=== PATIENT | female | born 2005 | race American Indian/Alaskan Native ===

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

== ENCOUNTER 2023-05-30 08:32 | Inpatient (IN) | payer MEDICAID ==
[2023-05-30] MEDS ORDERED: Methylergonovine 0.2 MG/1 ML Amp IM PRN (09:08)
[2023-05-30] MEDS ORDERED: Sodium Chloride 0.9% 10 ML Syringe FLUSH PRN (09:08)
[2023-05-30] MEDS ORDERED: Carboprost Tromethamine 250 MCG/1 ML Amp IM PRN (09:08)
[2023-05-30] MEDS ORDERED: Lactated Ringers 1,000 ML IV ONE (09:08)
[2023-05-30] MEDS ORDERED: Ondansetron 4 MG/2 ML SDV IVPUSH PRN (09:08)
[2023-05-30] MEDS ORDERED: Misoprostol 400 MCG (4 X 100 MCG TAB) RECTAL PRN (09:08)
[2023-05-30] MEDS ORDERED: Lidocaine 1% 30 ML SDV INJECT ONE (09:08)
[2023-05-30] MEDS ORDERED: Tranexamic Acid 1,000 MG in Sodium Chloride 0.9% 100 ML IV PRN (09:08)
[2023-05-30] MEDS: Lactated Ringers 1,000 ML IV SCH ×2 (09:13→18:55)
[2023-05-30] MEDS ORDERED: Oxytocin/Normal Saline 30 UNIT/500 ML BAG IV SCH ×2 (09:15)
[2023-05-30 09:18] LABS: HEMATOCRIT 42.5 % (37.0-47.0); HEMOGLOBIN 14.4 g/dL (12.0-16.0); MEAN CORPUSCULAR HEMOGLOBIN 31.2 pg (27.0-34.0); MEAN CORPUSCULAR HGB CONC 33.9 g/dL (33.0-35.0); RED BLOOD CELL COUNT 4.62 10^6/uL (4.2-5.4); WHITE BLOOD CELL COUNT,WBC 9.9 10^3/uL (5.0-10.0)
[2023-05-30] MEDS ORDERED: fentaNYL 100 MCG/2 ML SDV IVPUSH PRN (17:16)
[2023-05-30] MEDS ORDERED: fentaNYL 100 MCG/2 ML SDV ONE ×2 (17:17→18:30)
[2023-05-30] MEDS ORDERED: Ropivacaine 200 MG in Premix Bag 1 BAG EPIDUR SCH (18:00)
[2023-05-30] MEDS ORDERED: Bupivacaine 0.25% 10 ML SDV ONE (18:30)
[2023-05-30] MEDS: Sodium Chloride 0.9% 10 ML Syringe FLUSH SCH (20:56)
[2023-05-30] MEDS ORDERED: Ketorolac 30 MG/ML SDV IVPUSH SCH (23:45)
[2023-05-30] MEDS ORDERED: ceFAZolin 2 GM Vial IVPUSH ONE (23:50)
[2023-05-30] MEDS ORDERED: diphenhydrAMINE 50 MG/ML SDV IVPUSH PRN (23:51)
[2023-05-30] MEDS ORDERED: ePHEDrine 50 MG/ML SDV IVPUSH PRN (23:51)
[2023-05-30] MEDS ORDERED: Naloxone 2 MG/2 ML Syringe IVPUSH PRN (23:51)
[2023-05-30] MEDS ORDERED: Acetaminophen 325 MG Tab PO PRN (23:51)
[2023-05-30] MEDS ORDERED: Ondansetron 4 MG/2 ML SDV ONE (23:57)
[2023-05-30] MEDS ORDERED: Lidocaine 2% with EPINEPHrine 1:200,000 20 ML SDV ONE (23:57)
[2023-05-30] MEDS ORDERED: ceFAZolin 2 GM Vial ONE (23:58)
[2023-05-30] MEDS ORDERED: Oxytocin 10 Units/1 ML SDV ONE (23:58)
[2023-05-30] MEDS ORDERED: Ketorolac 30 MG/ML SDV ONE (23:58)
[2023-05-30] MEDS ORDERED: Dexamethasone 4 MG/ML SDV ONE (23:58)
[2023-05-31] MEDS ORDERED: Oxytocin/Normal Saline 30 UNIT/500 ML BAG ONE (00:05)
[2023-05-31] MEDS ORDERED: Tranexamic Acid 1,000 MG/10 ML Vial ONE (00:17)
[2023-05-31] MEDS ORDERED: Methylergonovine 0.2 MG/1 ML Amp ONE (00:31)
[2023-05-31] MEDS ORDERED: Misoprostol 400 MCG (4 X 100 MCG TAB) ONE (00:35)
[2023-05-31] MEDS: Lactated Ringers 1,000 ML IV SCH ×3 (01:01→06:23)
[2023-05-31] MEDS: Ketorolac 30 MG/ML SDV IVPUSH SCH ×3 (06:22→18:40)
[2023-05-31 06:27] LABS: HEMATOCRIT 37.4 % (37.0-47.0); HEMOGLOBIN 12.6 g/dL (12.0-16.0); MEAN CORPUSCULAR HEMOGLOBIN 31.3 pg (27.0-34.0); MEAN CORPUSCULAR HGB CONC 33.7 g/dL (33.0-35.0); MEAN CORPUSCULAR VOLUME 92.8 fL (80-100); RED BLOOD CELL COUNT 4.03 10^6/uL (4.2-5.4); WHITE BLOOD CELL COUNT,WBC 21.3 10^3/uL (5.0-10.0)
[2023-05-31] MEDS: Simethicone 80 MG Tab.Chew PO SCH ×4 (08:56→21:03)
[2023-05-31] MEDS: Prenatal Multivitamin with Calcium/Folic Acid/Iron Tab PO SCH (08:56)
[2023-05-31] MEDS: Docusate Sodium 100 MG Cap PO PRN ×2 (08:56→21:03)
[2023-05-31] MEDS: Sodium Chloride 0.9% 10 ML Syringe FLUSH SCH ×3 (09:29→21:05)
[2023-05-31] MEDS ORDERED: Ibuprofen 800 MG Tab PO PRN (20:00)
[2023-06-01] MEDS: Acetaminophen/oxyCODONE 325-5 MG Tab PO PRN ×5 (05:46→20:57)
[2023-06-01] MEDS ORDERED: Ibuprofen 800 MG Tab PO PRN (08:00)
[2023-06-01] MEDS: Simethicone 80 MG Tab.Chew PO SCH ×4 (09:08→20:56)
[2023-06-01] MEDS: Prenatal Multivitamin with Calcium/Folic Acid/Iron Tab PO SCH (09:08)
[2023-06-01] MEDS: Sodium Chloride 0.9% 10 ML Syringe FLUSH SCH (09:12)
[2023-06-01] MEDS: Docusate Sodium 100 MG Cap PO PRN ×2 (10:35→20:56)
[2023-06-01] MEDS: Ibuprofen 800 MG Tab PO PRN ×2 (12:59→20:56)
[2023-06-02] MEDS: Acetaminophen/oxyCODONE 325-5 MG Tab PO PRN ×2 (01:28→06:02)
[2023-06-02] MEDS: Ibuprofen 800 MG Tab PO PRN (06:01)
[2023-06-02 08:31] VITALS: BP 118/75; PULSE 90
[2023-06-02] MEDS: Docusate Sodium 100 MG Cap PO PRN (09:14)
[2023-06-02] MEDS: Simethicone 80 MG Tab.Chew PO SCH (09:15)
[2023-06-02] MEDS: Prenatal Multivitamin with Calcium/Folic Acid/Iron Tab PO SCH (09:15)
== END 2023-06-02 12:00 | disposition home or self-care (01) | DRG 786 ==
LOC: DL.OBCHECK 08:32 → DL.OB 09:07 → OBSVTOIN 05-31 00:27
PROVIDERS: ADMIT Family Medicine; ATTEND Family Medicine
PROC: 10D00Z1 Extraction of Products of Conception, Low, Open Approach (ICD-10-PCS; 2023-05-31)
PROC: 10H07YZ Insertion of Other Device into Products of Conception, Via Natural or Artificial Opening (ICD-10-PCS; principal; 2023-05-31 00:15)
DX: O99.814 Abnormal glucose complicating childbirth (principal); O45.93 Premature separation of placenta, unspecified, third trimester; O67.9 Intrapartum hemorrhage, unspecified; O75.89 Other specified complications of labor and delivery; Z37.0 Single live birth; Z3A.37 37 weeks gestation of pregnancy
CPT/HCPCS: 36415; 51702; 76815; 85027; 86850; 86900; 86901; 86920; 86922; 94010; A9270-GY; J1200; J1885; J2405; J2590; J2795; J3010; J3490; J7120

== ENCOUNTER 2023-08-28 12:28 | Emergency (ER) | payer MEDICAID ==
[2023-08-28 13:06] VITALS: BP 129/80; PULSE 81
[2023-08-28] MEDS ORDERED: GI Cocktail Oral Solution 30 ML PO ONE (13:09)
[2023-08-28] MEDS ORDERED: Ondansetron 4 MG Tab.DIS PO ONE (13:33)
== END 2023-08-28 14:23 | disposition home or self-care (01) ==
LOC: DL.ED 12:28
DX: K29.00 Acute gastritis without bleeding (principal); Z79.899 Other long term (current) drug therapy; Z88.5 Allergy status to narcotic agent
CPT/HCPCS: 99282; 99283; A9270

== ENCOUNTER 2024-04-16 18:12 | Emergency (ER) | payer MEDICAID ==
[2024-04-16 18:40] VITALS: BP 124/86; PULSE 117
[2024-04-16] MEDS: Acetaminophen 500 MG Tab PO ONE (18:46)
== END 2024-04-16 18:50 | disposition home or self-care (01) ==
LOC: DL.ED 18:12
DX: O98.52 Other viral diseases complicating childbirth (principal); B34.9 Viral infection, unspecified; Z3A.27 27 weeks gestation of pregnancy; K21.9 Gastro-esophageal reflux disease without esophagitis; Z86.16 Personal history of COVID-19; Z79.82 Long term (current) use of aspirin; Z79.899 Other long term (current) drug therapy; Z88.6 Allergy status to analgesic agent; Z88.5 Allergy status to narcotic agent
CPT/HCPCS: 99282; 99283; A9270-GY

== ENCOUNTER 2024-06-18 18:09 | Inpatient (IN) | payer MEDICAID ==
[2024-06-18] MEDS: Lactated Ringers 1,000 ML IV ONE (18:55)
[2024-06-18] MEDS: Lactated Ringers 1,000 ML IV SCH (19:48)
[2024-06-18 20:06] LABS: HEMATOCRIT 38.1 % (37.0-47.0); HEMOGLOBIN 12.6 g/dL (12.0-16.0); MEAN CORPUSCULAR HEMOGLOBIN 30.6 pg (27.0-34.0); MEAN CORPUSCULAR HGB CONC 33.1 g/dL (33.0-35.0); MEAN CORPUSCULAR VOLUME 92.5 fL (80-100); RED BLOOD CELL COUNT 4.12 10^6/uL (4.2-5.4); WHITE BLOOD CELL COUNT,WBC 9.4 10^3/uL (5.0-10.0)
[2024-06-18 20:27] LABS: ALANINE AMINOTRANSFERASE,ALT 14 U/L (14-59); ALBUMIN 2.4 g/dL (3.4-5.0); ALKALINE PHOSPHATASE 164 U/L (46-116); ANION GAP 12.8 mEq/L (7-13); ASPARTATE AMNIOTRANSFERASE,AST 14 U/L (15-37); BILIRUBIN TOTAL 0.3 mg/dL (0.2-1.0); BLOOD UREA NITROGEN,BUN 9 mg/dL (7-18); BUN/CREATININE RATIO 15.5 (No establ ref range); CALCIUM 9.3 mg/dL (8.5-10.1); CARBON DIOXIDE,CO2 24 mmol/L (21-32); CHLORIDE,CL 104 mmol/L (98-107); CREATININE 0.58 mg/dL (0.55-1.02); GLUCOSE RANDOM 91 mg/dL (70-99); POTASSIUM,K 3.8 mmol/L (3.5-5.1); PROTEIN TOTAL,TP 6.1 g/dL (6.4-8.2); SODIUM,NA 137 mmol/L (136-145)
[2024-06-18 20:31] LABS: A/G RATIO 0.65; ESTIMATED GFR 133 mL/min (>=60)
[2024-06-18 20:31] LABS: BILIRUBIN,URINE NEGATIVE (NEGATIVE); COLOR,URINE YELLOW (YELLOW); GLUCOSE,URINE 250 (NEGATIVE); KETONES,URINE NEGATIVE (NEGATIVE); LEUKOCYTE ESTERASE,URINE TRACE (NEGATIVE); NITRITE,URINE NEGATIVE (NEGATIVE); OCCULT BLOOD,URINE NEGATIVE (NEGATIVE); PROTEIN,URINE NEGATIVE (NEGATIVE); UROBILINOGEN,URINE 0.2 mg/dL (0.2-1.0)
[2024-06-18 20:33] LABS: APPEARANCE,URINE SLIGHTLY CLOUDY (CLEAR)
[2024-06-18 20:49] LABS: CREATININE,URINE RAND 37.5 mg/dL (No establ ref range); PROTEIN CREATININE RATIO,URINE 357.3 mg/g (<150.0); PROTEIN,URINE RANDOM 13.4 mg/dL (0.0-11.9)
[2024-06-18 21:04] LABS: AMORPHOUS SEDIMENT,URINE FEW /HPF (NOT SEEN); BACTERIA,URINE FEW /HPF (0-FEW/HPF); EPITHELIAL CELLS,URINE FEW /HPF (NOT SEEN); RBC,URINE NOT SEEN /HPF (0-5); WBC,URINE 0-5 /HPF (0-5/HPF)
[2024-06-18] MEDS ORDERED: Methylergonovine 0.2 MG Tab PO PRN (21:49)
[2024-06-18] MEDS ORDERED: Tranexamic Acid 1,000 MG in Sodium Chloride 0.9% 100 ML IV PRN ×2 (21:49→23:25)
[2024-06-18] MEDS ORDERED: Carboprost Tromethamine 250 MCG/1 ML Amp IM PRN ×2 (21:49→23:25)
[2024-06-18] MEDS ORDERED: Oxytocin 10 Units/1 ML SDV IM PRN (21:49)
[2024-06-18] MEDS ORDERED: Sodium Chloride 0.9% 10 ML Syringe FLUSH PRN (21:49)
[2024-06-18] MEDS ORDERED: Lactated Ringers 1,000 ML IV SCH ×3 (22:00→23:30)
[2024-06-18] MEDS ORDERED: ceFAZolin 1 GM Vial ONE (22:02)
[2024-06-18] MEDS ORDERED: ceFAZolin 2 GM Vial ONE (22:02)
[2024-06-18] MEDS ORDERED: Ondansetron 4 MG/2 ML SDV ONE (22:06)
[2024-06-18] MEDS ORDERED: Phenylephrine 1% 10 MG/ML SDV ONE (22:08)
[2024-06-18] MEDS ORDERED: Succinylcholine 200 MG/10 ML MDV ONE (22:11)
[2024-06-18] MEDS ORDERED: Rocuronium 100 MG/10 ML MDV ONE (22:11)
[2024-06-18] MEDS ORDERED: Morphine PF 10 MG/10 ML SDV ONE (22:17)
[2024-06-18] MEDS ORDERED: Acetaminophen 325 MG Tab PO PRN (23:25)
[2024-06-18] MEDS ORDERED: diphenhydrAMINE 50 MG/ML SDV IVPUSH PRN (23:25)
[2024-06-18] MEDS ORDERED: Misoprostol 100 MCG Tab RECTAL PRN (23:25)
[2024-06-18] MEDS ORDERED: Methylergonovine 0.2 MG/1 ML Amp IM PRN (23:25)
[2024-06-18] MEDS ORDERED: ePHEDrine 50 MG/ML SDV IVPUSH PRN (23:25)
[2024-06-18] MEDS ORDERED: Ondansetron 4 MG/2 ML SDV IVPUSH PRN (23:25)
[2024-06-18] MEDS ORDERED: Naloxone 2 MG/2 ML Syringe IVPUSH PRN (23:25)
[2024-06-18] MEDS: Oxytocin/Normal Saline 30 UNIT/500 ML BAG IV SCH (23:45)
[2024-06-19] MEDS: Misoprostol 100 MCG Tab RECTAL ONE (00:35)
[2024-06-19] MEDS: ceFAZolin 2 GM Vial IVPUSH ONE (02:28)
[2024-06-19] MEDS: Ibuprofen 600 MG Tab PO SCH ×2 (02:30→04:56)
[2024-06-19 07:09] LABS: HEMOGLOBIN 12.2 g/dL (12.0-16.0); MEAN CORPUSCULAR HEMOGLOBIN 30.8 pg (27.0-34.0); MEAN CORPUSCULAR VOLUME 93.4 fL (80-100); RED BLOOD CELL COUNT 3.96 10^6/uL (4.2-5.4); WHITE BLOOD CELL COUNT,WBC 18.7 10^3/uL (5.0-10.0)
[2024-06-19] MEDS: Ferrous Sulfate 325 MG Tab PO SCH (08:54)
[2024-06-19] MEDS: Prenatal Multivitamin with Calcium/Folic Acid/Iron Tab PO SCH (08:54)
[2024-06-19] MEDS: Simethicone 80 MG Tab.Chew PO SCH (08:55)
[2024-06-19] MEDS: Docusate Sodium 100 MG Cap PO PRN (08:55)
[2024-06-19] MEDS: Sodium Chloride 0.9% 10 ML Syringe FLUSH SCH (09:54)
[2024-06-19] MEDS: Acetaminophen/HYDROcodone 325-5 MG Tab PO PRN (20:06)
[2024-06-20] MEDS: Acetaminophen/HYDROcodone 325-5 MG Tab PO PRN
[2024-06-21] MEDS ORDERED: Bisacodyl 10 MG Supp RECTAL ONE (08:21)
[2024-06-21] MEDS: Bisacodyl 10 MG Supp RECTAL ONE (11:23)
[2024-06-21 12:02] VITALS: BP 116/84; PULSE 87
[2024-06-21] MEDS ORDERED: Dexamethasone 4 MG/ML SDV IV ONE (12:09)
[2024-06-21] MEDS ORDERED: Morphine PF 10 MG/10 ML SDV EPIDUR ONE (12:09)
[2024-06-21] MEDS ORDERED: Tranexamic Acid 1,000 MG/10 ML Vial IV ONE (12:09)
[2024-06-21] MEDS ORDERED: Ketorolac 30 MG/ML SDV IVPUSH ONE (12:09)
[2024-06-21] MEDS ORDERED: Phenylephrine 1% 10 MG/ML SDV IV ONE (12:09)
[2024-06-21] MEDS ORDERED: Oxytocin/Normal Saline 30 UNIT/500 ML BAG IV ONE (12:09)
[2024-06-21] MEDS ORDERED: Lactated Ringers 1,000 ML IV ONE (12:09)
[2024-06-21] MEDS ORDERED: Ondansetron 4 MG/2 ML SDV IV ONE (12:09)
== END 2024-06-21 12:10 | disposition home or self-care (01) | DRG 787 ==
LOC: DL.OBCHECK 18:09 → DL.OB 21:41 → OBSVTOIN 22:40
PROVIDERS: ADMIT Family Medicine; ATTEND Family Medicine
PROC: 10D00Z1 Extraction of Products of Conception, Low, Open Approach (ICD-10-PCS; principal; 2024-06-18 22:13)
DX: O60.14X0 Preterm labor third trimester with preterm delivery third trimester, not applicable or unspecified (principal); D62 Acute posthemorrhagic anemia; O99.02 Anemia complicating childbirth; O34.211 Maternal care for low transverse scar from previous cesarean delivery; O14.94 Unspecified pre-eclampsia, complicating childbirth; O99.62 Diseases of the digestive system complicating childbirth; K59.00 Constipation, unspecified; Z3A.36 36 weeks gestation of pregnancy; Z37.0 Single live birth
CPT/HCPCS: 01961; 36415; 51702; 59025; 76819; 80053; 81001; 82570; 84156; 85027; 86850; 86900; 86901; 87210; A9270-GY; J0330; J1100; J1885; J2274; J2371; J2405; J2590; J3490; J7120

== ENCOUNTER 2024-07-15 10:34 | Emergency (ER) | payer MEDICAID ==
[2024-07-15] MEDS ORDERED: Sodium Chloride 0.9% 10 ML Syringe FLUSH PRN (10:43)
[2024-07-15 10:54] LABS: BASOPHILS PERCENT AUTO 0.1 % (0.0-1.0); EOSINOPHILS PERCENT AUTO 0.2 % (1.0-3.0); HEMATOCRIT 43.6 % (37.0-47.0); HEMOGLOBIN 14.4 g/dL (12.0-16.0); LYMPHOCYTES PERCENT AUTO 9.9 % (20.5-50.1); MEAN CORPUSCULAR VOLUME 90.8 fL (80-100); NEUTROPHILS PERCENT AUTO 77.8 % (42.2-75.2); PLATELET COUNT,PLT 229 10^3/uL (150-450); WHITE BLOOD CELL COUNT,WBC 13.8 10^3/uL (5.0-10.0)
[2024-07-15] MEDS: Ketorolac 30 MG/ML SDV IVPUSH ONE (10:55)
[2024-07-15] MEDS: Acetaminophen 500 MG Tab PO ONE (10:55)
[2024-07-15] MEDS: Sodium Chloride 0.9% 1,000 ML IV ONE ×2 (10:56→11:25)
[2024-07-15 11:14] LABS: A/G RATIO 0.9; ALBUMIN 3.5 g/dL (3.4-5.0); ANION GAP 15.8 mEq/L (7-13); BILIRUBIN TOTAL 0.5 mg/dL (0.2-1.0); BUN/CREATININE RATIO 5.5 (No establ ref range); CALCIUM 8.8 mg/dL (8.5-10.1); CREATININE 0.73 mg/dL (0.55-1.02); EST CRCL DRUG DOSING (CG) 97.23 mL/min; MAGNESIUM 1.9 mg/dL (1.8-2.4); POTASSIUM,K 3.8 mmol/L (3.5-5.1); PROTEIN TOTAL,TP 7.5 g/dL (6.4-8.2)
[2024-07-15] MEDS: Doxycycline 100 MG in Sodium Chloride 0.9% 100 ML IV ONE (11:55)
[2024-07-15 12:56] VITALS: BP 113/77; PULSE 97
== END 2024-07-15 12:58 | disposition home or self-care (01) ==
LOC: DL.ED 10:34
DX: O99.53 Diseases of the respiratory system complicating the puerperium (principal); J15.5 Pneumonia due to Escherichia coli; Z88.5 Allergy status to narcotic agent; Z79.899 Other long term (current) drug therapy
CPT/HCPCS: 36415; 71046; 80053; 83605; 83735; 85025; 86140; 87428; 96365; 96375; 99284; A9270; J1885; J3490; J7030

== ENCOUNTER 2024-12-25 08:39 | Emergency (ER) | payer MEDICAID ==
[2024-12-25] MEDS ORDERED: Sodium Chloride 0.9% 10 ML Syringe FLUSH PRN (08:45)
[2024-12-25 09:01] LABS: BASOPHILS PERCENT AUTO 0.1 % (0.0-1.0); EOSINOPHILS PERCENT AUTO 0.9 % (1.0-3.0); HEMATOCRIT 44.7 % (37.0-47.0); HEMOGLOBIN 14.7 g/dL (12.0-16.0); LYMPHOCYTES PERCENT AUTO 4.9 % (20.5-50.1); MEAN CORPUSCULAR HEMOGLOBIN 28.8 pg (27.0-34.0); MEAN CORPUSCULAR HGB CONC 32.9 g/dL (33.0-35.0); MEAN CORPUSCULAR VOLUME 87.5 fL (80-100); MONOCYTES PERCENT AUTO 6.3 % (2-8); NEUTROPHILS PERCENT AUTO 87.8 % (42.2-75.2); PLATELET COUNT,PLT 303 10^3/uL (150-450); RED BLOOD CELL COUNT 5.11 10^6/uL (4.2-5.4)
[2024-12-25] MEDS: Lactated Ringers 1,000 ML IV SCH (09:01)
[2024-12-25] MEDS: Ondansetron 4 MG/2 ML SDV IVPUSH ONE (09:01)
[2024-12-25] MEDS: Acetaminophen 500 MG Tab PO ONE (09:51)
[2024-12-25 09:54] LABS: A/G RATIO 1.1; ALANINE AMINOTRANSFERASE,ALT 21 U/L (14-59); ALKALINE PHOSPHATASE 96 U/L (46-116); ANION GAP 11.1 mEq/L (7-13); ASPARTATE AMNIOTRANSFERASE,AST 11 U/L (15-37); BLOOD UREA NITROGEN,BUN 13 mg/dL (7-18); BUN/CREATININE RATIO 15.5 (No establ ref range); C-REACTIVE PROTEIN < 0.50 ng/dL (<=0.50); CALCIUM 9.6 mg/dL (8.5-10.1); CARBON DIOXIDE,CO2 25 mmol/L (21-32); CHLORIDE,CL 105 mmol/L (98-107); CREATININE 0.84 mg/dL (0.55-1.02); EST CRCL DRUG DOSING (CG) 83.79 mL/min; ESTIMATED GFR 101 mL/min (>=60); GLUCOSE RANDOM 120 mg/dL (70-99); LIPASE 20 U/L (16-77); POTASSIUM,K 4.1 mmol/L (3.5-5.1); PROTEIN TOTAL,TP 7.7 g/dL (6.4-8.2); SODIUM,NA 137 mmol/L (136-145)
[2024-12-25 09:55] VITALS: BP 121/84; PULSE 86
[2024-12-25 10:16] LABS: BILIRUBIN,URINE NEGATIVE (NEGATIVE); COLOR,URINE YELLOW (YELLOW); GLUCOSE,URINE NEGATIVE (NEGATIVE); KETONES,URINE NEGATIVE (NEGATIVE); LEUKOCYTE ESTERASE,URINE NEGATIVE (NEGATIVE); NITRITE,URINE NEGATIVE (NEGATIVE); OCCULT BLOOD,URINE NEGATIVE (NEGATIVE); PROTEIN,URINE NEGATIVE (NEGATIVE); UROBILINOGEN,URINE 0.2 mg/dL (0.2-1.0)
[2024-12-25 10:18] LABS: APPEARANCE,URINE CLEAR (CLEAR)
== END 2024-12-25 10:40 | disposition home or self-care (01) ==
LOC: DL.ED 08:39
DX: R11.2 Nausea with vomiting, unspecified (principal); R19.7 Diarrhea, unspecified; Z88.8 Allergy status to other drugs, medicaments and biological substances; Z79.899 Other long term (current) drug therapy
CPT/HCPCS: 36415; 80053; 81003; 81025; 83690; 85025; 86140; 96374; 99283; 99284; A9270; J2405; J7120

== ENCOUNTER 2025-05-26 10:55 | Emergency (ER) | payer MEDICAID ==
[2025-05-26 11:14] VITALS: BP 122/81; PULSE 106
== END 2025-05-26 12:33 | disposition home or self-care (01) ==
LOC: DL.ED 10:55
DX: S93.602A Unspecified sprain of left foot, initial encounter (principal); Z88.5 Allergy status to narcotic agent; X50.1XXA Overexertion from prolonged static or awkward postures, initial encounter
CPT/HCPCS: 73600; 73620; 99282; 99283; A9270